=== PATIENT | male | born 1960 | race Caucasian/White ===

== ENCOUNTER 2021-12-06 15:11 | Outpatient (REF) | payer MEDICAID, SELFPAY ==
--- NOTE | 2021-12-06 14:00 | SKI_PTH ---
PATIENT: Emanuel Guido LOC: [facility] U#:[id number] AGE/SX: 61/M ROOM: RE12/06/[address]: Hector Hansen DO : 1960 BED: DIS: 12/06/2021 SPEC #: [id number] RECD: 12/06/21 18:11 STATUS: BLAS UNDEWROOD #: [id number] VITOR: 12/06/21 14:[address]: Hector Hansen DEPT: Surgical Specimen RECD BY: Kathleen Simeon Tissues: 1 - SKIN BIOPSY(SHAVE/PUNCH) Procedures: SKIN LEVEL 4 Comments: [id number]
== END 2021-12-06 15:12 | disposition home or self-care (01) ==
LOC: LBN 15:11
PROVIDERS: PCP Family Medicine; Referring Provider Family Medicine; Visit Provider Family Medicine
DX: R23.4 Changes in skin texture (principal)
CPT/HCPCS: 88305

== ENCOUNTER 2021-12-11 17:05 | Emergency (ER) | payer MEDICAID, SELFPAY ==
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
--- NOTE | 2021-12-11 18:45 | DI.RAD_ITS ---
Exam(s) XR PORTABLE CHEST AP EXAM: XR PORTABLE CHEST AP CLINICAL HISTORY: cough, hx of copd. TECHNIQUE: 2D digital imaging was performed. COMPARISON: No exams were available for comparison FINDINGS: Heart size is upper normal. The mediastinum is not widened. Lungs are clear. No infiltrates nor obvious pleural effusions. IMPRESSION: No acute pulmonary findings on this single AP portable view of the chest. DATA REPOSITORY: RADIATION DOSE DELIVERED: All CT scans at this facility use at least one of these dose optimization techniques: automated exposure control; mA and/or kV adjustment per patient size (includes targeted e xams where dose is matched to clinical indication); or iterative reconstruction.
[2021-12-11] MEDS: Dexamethasone 4 MG TAB 10 MG PO (19:52)
[2021-12-11] MEDS: diphenhydrAMINE 25 MG CAP PO (19:52)
[2021-12-11] MEDS: Albuterol/Ipratropium 3 ML UPD VIAL 9 ML UPD (19:52)
[2021-12-11 20:14] VITALS: BP 130/78; PULSE 72; RESP 16; TEMP 36.6; O2SAT 99
--- NOTE | 2021-12-11 21:00 | DI.VRAD_ITS ---
PROCEDURE INFORMATION: Exam: XR Chest Exam date and time: 12/11/2021 6:59 PM Age: 61 years old Clinical indication: Other: Cough, HX of copd TECHNIQUE: Imaging protocol: XR of the chest. Views: 1 view. COMPARISON: No relevant prior studies available. FINDINGS: Lungs: Unremarkable. No consolidation. Pleural spaces: Unremarkable. No pleural effusion. No pneumothorax. Heart/Mediastinum: Unremarkable. No cardiomegaly. Bones/joints: Unremarkable. IMPRESSION: No acute findings. Dictated and Authenticated by: Giovanni Dixon MD. Ordering:TANGELA Conrad MD
[2021-12-11 21:35] VITALS: BP 130/78; PULSE 72; RESP 16; TEMP 36.6; O2SAT 99
== END 2021-12-11 22:24 | disposition home or self-care (01) ==
PROVIDERS: Emergency Provider Emergency Medicine; PCP Family Medicine
DX: B86 Scabies (principal); R05.1 Acute cough; J44.9 Chronic obstructive pulmonary disease, unspecified
CPT/HCPCS: 94640; 99283; 71045; J7620; J8540

== ENCOUNTER → 2022-08-08 00:47 | Outpatient (CLI) | payer MEDICAID, SELFPAY ==
--- NOTE | 2022-08-08 07:00 | DI.RAD_ITS ---
Exam(s) XR KNEE RT 3V AP,LAT,JOEL EXAM: XR KNEE RT 3V AP,LAT,JOEL CLINICAL HISTORY: Chronic knee arthritis M17.10 OSTEOARTHRITIS KNEE. TECHNIQUE: 2D digital imaging was performed of the right knee. Three views obtained. AP, lateral an d PA tunnel views were obtained. COMPARISON: No exams were available for comparison FINDINGS: BONES: No acute fracture is present. No bony destructive lesion is seen. JOINTS: The knee is normally aligned. No joint effusion is seen. Mild degenerative changes are seen a t the patellofemoral joint. SOFT TISSUE: Atherosclerosis is present. IMPRESSION: Mild degenerative changes of the knee. DATA REPOSITORY: RADIATION DOSE DELIVERED:
== END ==
PROVIDERS: PCP Family Medicine; Visit Provider Family Medicine
DX: M17.11 Unilateral primary osteoarthritis, right knee (principal)
CPT/HCPCS: 73562

== ENCOUNTER 2022-10-27 17:03 | Emergency (ER) | payer MEDICAID, SELFPAY ==
[2022-10-27] VITALS (16 sets, daily range): BP systolic 102–123; BP diastolic 60–83; PULSE 65–72; RESP 12–22; TEMP 36.6–36.7; O2SAT 94–98
--- NOTE | 2022-10-27 17:15 | RT.EKG_ITS ---
APPROVED REPORT Exam: Resting ECG Reason for Exam: CHEST PAIN Patient Location: E HR:66 bpm ECG Measurements Heart Rate 66 AXIS OR 167 P 55 QRSd 79 QRS 31 QT 405 T 75 QTc 425 Conclusion Sinus rhythm...normal P axis, V-rate 60- 99 Low voltage, precordial leads...precordial leads <1.0mV
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
[2022-10-27 18:40] LABS: Abs Immature Grans 0.01 10^3/uL (0.0-0.06); Absolute Basophil Count 0.07 10^3/uL (0.0-0.2); Absolute Eosinophil Count 0.41 10^3/uL (0.0-0.7); Absolute Monocyte Count 0.77 10^3/uL (0.1-0.8); Absolute Neutrophil Count 2.25 10^3/uL (1.2-6.7); Basophils % 1.3; Eosinophils % 7.7; HCT 33.4 % (40.0-50.0); HGB 11.4 g/dL (13.5-17.5); Immature Grans % 0.2; Lymphocytes % 33.9; MCH 34.8 pg (27.0-33.0); MCHC 34.1 % (32.0-36.0); MCV 102 fL (80-95); MPV 10.4 fL (8.0-11.0); Monocytes % 14.5; Neutrophils % 42.4; Platelet Count 142 10^3/uL (130-400); RBC 3.28 10^6/uL (4.36-5.78); RDW 11.9 % (11.8-14.1); RDW-SD 44.9 fL; WBC 5.31 10^3/uL (4.4-10.8)
[2022-10-27 18:55] LABS: ALT 88 U/L (16-63); AST 129 U/L (15-37); Albumin 1.9 g/dL (3.4-5.0); Alkaline Phosphatase 179 U/L (46-116); Anion Gap 4.4 mmol/L (3-11); BUN 12 mg/dL (7-18); Bilirubin, Total 1.4 mg/dL (0.2-1.0); CO2 26.6 mmol/L (21.0-32.0); CREATININE 1.4 mg/dL (0.70-1.30); Calcium 7.7 mg/dL (8.5-10.1); Chloride 100 mmol/L (98-107); Estimated GFR 56.48 (mL/min/1.73m2); Glucose 99 mg/dL (74-106); Potassium 3.8 mmol/L (3.5-5.1); Sodium 131 mmol/L (136-145); Total Protein 7.5 g/dL (6.4-8.2)
[2022-10-27 19:02] LABS: Lipase 250 U/L (73-393)
[2022-10-27 19:11] LABS: INR 1.5 (0.9-1.1); PTT Activated 27.9 sec (21.0-27.5); Prothrombin Time 15.2 sec (9.3-11.0)
--- NOTE | 2022-10-27 21:35 | W.EDPROG ---
Date of service: 10/27/22 Time of Service: 20:00 Medical Decision Making 1999 -- 62yo M with a history of alcohol abuse, cirrhosis and ascites requiring recurrent paracentesis presented for abdominal pain and distention requesting paracentesis. Case endorsed to follow-up on body fluid results after Dr. Gonzalez performed bedside paracentesis and removed 3 L. 2129 --patient has requested to leave multiple times. Discussed that his body fluid results are not yet available. Patient states he feels much better and would like to go home. Discussed that suspicion for infection is low as he has been afebrile with normal white blood cell count and appears nontoxic but would recommend to wait for body fluid results to rule out infection. Patient understand the risks of and disability when leaving AGAINST MEDICAL ADVICE and he demonstrates capacity make decisions. He states he has a follow-up appointment with general surgery on Monday. He appears comfortable and nontoxic. His vitals are within normal limits. Advised to follow-up with his PCP and gastroenterology. 2229 --after patient left AMA, results available and note WBC 247uL, 12% polynuclear WBCs. Case and results reviewed with general surgery Dr. Blanco -- does not see any indications for antibiotics and patient can follow-up with general surgery as outpatient. Lab Data Lab results reviewed: Yes I reviewed the patient's lab results. Labs: 10/27/22 20:45 Paracentesis Body Fluid Culture - Pending 10/27/22 20:45 Paracentesis Gram Stain - Final 10/27/22 20:45 Abdomen Anaerobic Culture - Pending Laboratory Tests Range/Units 10/27/22 10/27/22 10/27/22 18:33 18:33 18:33 WBC (4.4-10.8) 10^3/uL 5.31 RBC (4.36-5.78) 10^6/uL 3.28 L Hgb (13.5-17.5) g/dL 11.4 L Hct (40.0-50.0) % 33.4 L MCV (80-95) fL 102 H MCH (27.0-33.0) pg 34.8 H MCHC (32.0-36.0) % 34.1 RDW (11.8-14.1) % 11.9 Plt Count (130-400) 10^3/uL 142 MPV (8.0-11.0) fL 10.4 Immature Gran % 0.2 Neutrophils % 42.4 Lymphocytes % 33.9 Monocytes % 14.5 Eosinophils % 7.7 Basophils % 1.3 Nucleated RBC % (0.0-0.3) % 0.0 Absolute Neutrophils (1.2-6.7) 10^3/uL 2.25 Absolute Lymphocytes (1.2-3.4) 10^3/uL 1.80 Absolute Monocytes (0.1-0.8) 10^3/uL 0.77 Absolute Eosinophils (0.0-0.7) 10^3/uL 0.41 Absolute Basophils (0.0-0.2) 10^3/uL 0.07 PT (9.3-11.0) sec INR (0.9-1.1) APTT (21.0-27.5) sec Sodium (136-145) mmol/L 131 L Potassium (3.5-5.1) mmol/L 3.8 Chloride (98-107) mmol/L 100 Carbon Dioxide (21.0-32.0) mmol/L 26.6 Anion Gap (3-11) mmol/L 4.4 BUN (7-18) mg/dL 12 Creatinine (0.70-1.30) mg/dL 1.4 H Est GFR (CKD-EPI 2020) (mL/min/1.73m2) 56.48 Glucose (74-106) mg/dL 99 Calcium (8.5-10.1) mg/dL 7.7 L Magnesium (1.8-2.4) mg/dL 2.0 Total Bilirubin (0.2-1.0) mg/dL 1.4 H AST (15-37) U/L 129 H ALT (16-63) U/L 88 H Alkaline Phosphatase (46-116) U/L 179 H Total Protein (6.4-8.2) g/dL 7.5 Albumin (3.4-5.0) g/dL 1.9 L Lipase (73-393) U/L 250 Fluid Source Fluid Color Fluid Clarity Fluid WBC (0) uL Fld Polynuclear WBCs % % Fluid Mononuclear Cell % Range/Units 10/27/22 10/27/22 18:33 20:45 WBC (4.4-10.8) 10^3/uL RBC (4.36-5.78) 10^6/uL Hgb (13.5-17.5) g/dL Hct (40.0-50.0) % MCV (80-95) fL MCH (27.0-33.0) pg MCHC (32.0-36.0) % RDW (11.8-14.1) % Plt Count (130-400) 10^3/uL MPV (8.0-11.0) fL Immature Gran % Neutrophils % Lymphocytes % Monocytes % Eosinophils % Basophils % Nucleated RBC % (0.0-0.3) % Absolute Neutrophils (1.2-6.7) 10^3/uL Absolute Lymphocytes (1.2-3.4) 10^3/uL Absolute Monocytes (0.1-0.8) 10^3/uL Absolute Eosinophils (0.0-0.7) 10^3/uL Absolute Basophils (0.0-0.2) 10^3/uL PT (9.3-11.0) sec 15.2 H INR (0.9-1.1) 1.5 H APTT (21.0-27.5) sec 27.9 H Sodium (136-145) mmol/L Potassium (3.5-5.1) mmol/L Chloride (98-107) mmol/L Carbon Dioxide (21.0-32.0) mmol/L Anion Gap (3-11) mmol/L BUN (7-18) mg/dL Creatinine (0.70-1.30) mg/dL Est GFR (CKD-EPI 2020) (mL/min/1.73m2) Glucose (74-106) mg/dL Calcium (8.5-10.1) mg/dL Magnesium (1.8-2.4) mg/dL Total Bilirubin (0.2-1.0) mg/dL AST (15-37) U/L ALT (16-63) U/L Alkaline Phosphatase (46-116) U/L Total Protein (6.4-8.2) g/dL Albumin (3.4-5.0) g/dL Lipase (73-393) U/L Fluid Source Peritoneal Fluid Color Yellow Fluid Clarity Clear Fluid WBC (0) uL 247 Fld Polynuclear WBCs % % 12 Fluid Mononuclear Cell % 88 Sign Out Sign Out Data: Sign Out Comment: Follow-up labs from paracentesis and reassess patient for disposition. Last updated by Wai Gonzalez MD at 10/27/22 20:40 Discharge Plan Disposition Patient Disposition: Against Medical Advice Condition: Stable Discharge Details Clinical Impression: Cirrhosis of liver with ascites, S/P abdominal paracentesis Primary Care Provider: Hector Hansen ED Provider: Liliana Burk Home Meds and New Rx's Prescriptions: Continued albuterol sulfate [Ventolin HFA] 90 mcg/actuation HFA aerosol inhaler 2 puff IH Q4H PRN (Reason: shortness of breath or wheezing) Qty: 18 12RF diphenhydramine HCl 25 mg capsule 25 mg PO QHS PRN (Reason: itching) Qty: 90 3RF montelukast 10 mg tablet 10 mg PO DAILY Qty: 30 12RF loratadine 10 mg tablet 10 mg PO DAILY Qty: 30 12RF fluticasone propionate 50 mcg/actuation spray,suspension 1 spray NS BID Qty: 18.2 6RF olanzapine 5 mg tablet 5 mg PO QHS Qty: 90 3RF clonazepam 1 mg tablet See Rx Instructions PO QHS PRN (Reason: insomnia) Qty: 90 2RF Rx Instructions: PO every day at bedtime, one when he gets up to urinate each time to total 3/d PRN; loperamide 2 mg capsule 2 mg PO Q6H PRN naloxone [Narcan] 4 mg/actuation spray,non-aerosol 4 mg NOEMY Q2M PRN (Reason: opioid overdose) Qty: 2 0RF Rx Instructions: spray 1 dose into ONE nostril; alternate nostrils w each dose until help arrives mirtazapine 15 mg tablet 15 mg PO QHS budesonide-formoterol 160-4.5 mcg/actuation HFA aerosol inhaler 2 puff inhalation BID nadolol 20 mg tablet 20 mg PO ONCE Qty: 60 3RF omeprazole 20 mg capsule,delayed release(DR/EC) 20 mg PO DAILY Qty: 30 12RF tamsulosin 0.4 mg capsule 0.4 mg PO DAILY Qty: 30 12RF melatonin 3 mg tablet 3 mg PO HS PRN furosemide 40 mg tablet 40 mg PO DAILY Qty: 60 0RF ondansetron 4 mg tablet,disintegrating 4 mg PO Q8H PRN (Reason: nausea and vomiting) Qty: 30 0RF oxycodone 10 mg tablet 10 mg PO TID MDD 30 mg PRN (Reason: pain) Qty: 84 0RF Discharge Instructions Additional Instructions: You are leaving the hospital AGAINST MEDICAL ADVICE as we do not have the test results from your paracentesis available yet today. You will be contacted if there are any concerning results as you may need to return to the hospital for further evaluation and consideration for admission or transfer to another hospital where a bed may be available. Please continue your medication as prescribed. Call your primary care doctor's office tomorrow to schedule a follow-up appointment for reevaluation in the next week. Please follow-up with general surgery as scheduled next week for potential need for repeat paracentesis. Please follow-up with gastroenterology . Call tomorrow. Return to the emergency apartment immediately for any worsening or new concerning symptoms such as fever, persistent vomiting, worsening pain or any other concerns. Referrals: [facility] [Provider Group] Hector Hansen DO [Primary Care Provider] - Discharge Data Discharge Physician: Liliana Burk
[2022-10-27 21:37] LABS: Clarity Clear; Nucleated Cells 247 uL (0); Source Peritoneal
[2022-10-27 21:50] LABS: Mononuclear Cells 88 %; Polynuclear Cells 12 %
[2022-10-30 14:52] LABS: Amylase, BF 16 U/L; Fluid Type PERITONEAL
== END 2022-10-27 21:43 | disposition left against medical advice (07) ==
PROVIDERS: Student in an Organized Health Care Education/Training Program; Emergency Provider Physician Assistant; PCP Family Medicine
DX: K74.60 Unspecified cirrhosis of liver (principal); R18.8 Other ascites
CPT/HCPCS: 36415; 49082; 80053; 83690; 93005; 99283; 82150; 83735; 85025; 85610; 85730; 87070; 87075; 87205; 89051; 93010; 99284

== ENCOUNTER 2022-11-22 10:50 | Day surgery (SDC) | payer MEDICAID, SELFPAY ==
--- NOTE | 2022-11-21 20:31 | W.PM.DSUDISC ---
Date of service: 11/22/22 Time of Service: 12:25 Discharge Plan Disposition Patient Disposition: Home Condition: Good Discharge Details Reason For Visit: Paracentesis Attending Provider: Rubio Blanco Primary Care Provider: Hector Hansen Home Meds and New Rx's Prescriptions: Continued albuterol sulfate [Ventolin HFA] 90 mcg/actuation HFA aerosol inhaler 2 puff IH Q4H PRN (Reason: shortness of breath or wheezing) Qty: 18 12RF diphenhydramine HCl 25 mg capsule 25 mg PO QHS PRN (Reason: itching) Qty: 90 3RF montelukast 10 mg tablet 10 mg PO DAILY Qty: 30 12RF fluticasone propionate 50 mcg/actuation spray,suspension 1 spray NS BID Qty: 18.2 6RF olanzapine 5 mg tablet 5 mg PO QHS Qty: 90 3RF clonazepam 1 mg tablet See Rx Instructions PO QHS PRN (Reason: insomnia) Qty: 90 2RF Rx Instructions: PO every day at bedtime, one when he gets up to urinate each time to total 3/d PRN; naloxone [Narcan] 4 mg/actuation spray,non-aerosol 4 mg NOEMY Q2M PRN (Reason: opioid overdose) Qty: 2 0RF Label Comments: pt states he has never used this Rx Instructions: spray 1 dose into ONE nostril; alternate nostrils w each dose until help arrives mirtazapine 15 mg tablet 15 mg PO QHS budesonide-formoterol 160-4.5 mcg/actuation HFA aerosol inhaler 2 puff inhalation BID nadolol 20 mg tablet 20 mg PO ONCE Qty: 60 3RF tamsulosin 0.4 mg capsule 0.4 mg PO DAILY Qty: 30 12RF melatonin 3 mg tablet 3 mg PO HS PRN ondansetron 4 mg tablet,disintegrating 4 mg PO Q8H PRN (Reason: nausea and vomiting) Qty: 30 0RF oxycodone 10 mg tablet 10 mg PO TID MDD 30 mg PRN (Reason: pain) Qty: 84 0RF loperamide 2 mg capsule 2 mg PO Q6H PRN (Reason: loose stool) Qty: 90 1RF loratadine 10 mg tablet 10 mg PO DAILY Qty: 30 12RF omeprazole 20 mg capsule,delayed release(DR/EC) 20 mg PO DAILY Qty: 30 12RF furosemide 40 mg tablet 60 mg PO DAILY Qty: 135 0RF Discharge Instructions Instructions: Paracentesis (GEN) Additional Instructions: Emanuel, we were able to drain 3600 mL of ascites off of your abdomen today. Hopefully, this will provide you some relief. Please contact the office to schedule another paracentesis in about 3 weeks time. Activity:: Activity as Tolerated Remove Dressings/Wound Care:: 24 hours Shower/Bathe:: 24 hours Diet:: As Tolerated Discharge Orders Discharge Orders: Discharge Order (Routine); Ordered 11/21/22 Ordered By: Rubio Blanco DS: Diagnosis Discharge Diagnosis (1) Cirrhosis of liver with ascites: Status: Acute Asessment and Plan: Follow-up for next paracentesis 3 weeks
--- NOTE | 2022-11-21 20:33 | ROE_ITS ---
Date of service: 11/22/22 Time of Service: 12:27 Operative Note Operative Note DATE OF PROCEDURE: 11/22/22 PRE-OP DIAGNOSIS: Ascites POST-OP DIAGNOSIS: same PROCEDURE: Paracentesis SURGEON: Rubio Blanco ANESTHESIA TYPE: Local By Surgeon ESTIMATED BLOOD LOSS: 5 PATHOLOGY: none sent COMPLICATIONS: None Patient was transported to: same day Patient's condition: stable Indications: Emanuel is a 62-year-old male with alcoholic cirrhosis and tense ascites Procedure Description: I started by performing a limited ultrasound of the abdomen to identify appropriate site for paracentesis. Next, I selected the left lower quadrant as the ideal site for paracentesis. I then prepped and draped the abdomen. Next, using ultrasound guidance, I anesthetized the skin with 1% lidocaine with epinephrine. I used the ultrasound to guide the needle down to the peritoneal level which was also anesthetized. I then made a small incision in the skin with a 11 blade scalpel. Next, I advanced the 5 [place] paracentesis needle and catheter through the incision and into the peritoneal cavity under the direct vision of the ultrasound. I aspirated straw-colored ascites. Next, I gently advance the catheter and remove the needle. I affixed drainage tubing, and began draining the ascites with the assistance of Vacutainer's. I drained 3600 mL of ascites. Once the ascites stopped flowing, I removed the catheter and used a Band-Aid to dress the wound.
[2022-11-22 11:38] VITALS: BP 91/77; PULSE 74; RESP 20; TEMP 36.5; O2SAT 99
[2022-11-22 12:33] VITALS: BP 91/66; PULSE 83; RESP 16; TEMP 36.3; O2SAT 100
== END 2022-11-22 13:03 | disposition home or self-care (01) ==
PROVIDERS: PCP Family Medicine; Visit Provider Surgery
PROC: 0W9G3ZZ Drainage of Peritoneal Cavity, Percutaneous Approach (ICD-10-PCS; CPT 49082; principal; 2022-11-22 11:30)
DX: K70.31 Alcoholic cirrhosis of liver with ascites (principal)
CPT/HCPCS: 49082

== ENCOUNTER 2022-12-09 11:02 | Day surgery (SDC) | payer MEDICAID, SELFPAY ==
--- NOTE | 2022-12-08 21:13 | W.PM.DSUDISC ---
Date of service: 12/09/22 Time of Service: 13:35 Discharge Plan Disposition Patient Disposition: Home Condition: Good Discharge Details Reason For Visit: paracentesis Attending Provider: Rubio Blanco Primary Care Provider: Hector Hansen Home Meds and New Rx's Prescriptions: Continued fluticasone propionate 50 mcg/actuation spray,suspension 1 spray NS BID Qty: 18.2 6RF olanzapine 5 mg tablet 5 mg PO QHS Qty: 90 3RF naloxone [Narcan] 4 mg/actuation spray,non-aerosol 4 mg NOEMY Q2M PRN (Reason: opioid overdose) Qty: 2 0RF Patient Comments: pt states he has never used this Rx Instructions: spray 1 dose into ONE nostril; alternate nostrils w each dose until help arrives mirtazapine 15 mg tablet 15 mg PO QHS budesonide-formoterol 160-4.5 mcg/actuation HFA aerosol inhaler 2 puff inhalation BID nadolol 20 mg tablet 20 mg PO ONCE Qty: 60 3RF oxycodone 10 mg tablet 10 mg PO TID MDD 30 mg PRN (Reason: pain) Qty: 84 0RF clonazepam 1 mg tablet See Rx Instructions PO QHS PRN (Reason: insomnia) Qty: 90 3RF Rx Instructions: PO every day at bedtime, one when he gets up to urinate each time to total 3/d PRN; buspirone 5 mg tablet 15 mg PO BID Qty: 180 3RF CeraVe Daily Moisturizing Lotion 1 applic topical DAILY Qty: 355 6RF tamsulosin 0.4 mg capsule 0.4 mg PO DAILY Qty: 30 12RF melatonin 3 mg tablet 3 mg PO HS PRN loperamide 2 mg capsule 2 mg PO Q6H PRN (Reason: loose stool) Qty: 90 1RF loratadine 10 mg tablet 10 mg PO DAILY Qty: 30 12RF omeprazole 20 mg capsule,delayed release(DR/EC) 20 mg PO DAILY Qty: 30 12RF furosemide 40 mg tablet 60 mg PO DAILY Qty: 135 0RF diphenhydramine HCl 25 mg capsule 25 mg PO BID PRN (Reason: itching) Qty: 180 3RF albuterol sulfate [Ventolin HFA] 90 mcg/actuation HFA aerosol inhaler 2 puff IH Q4H PRN (Reason: shortness of breath or wheezing) Qty: 18 12RF ondansetron 4 mg tablet,disintegrating 4 mg PO Q8H PRN (Reason: nausea and vomiting) Qty: 60 6RF montelukast 10 mg tablet 10 mg PO DAILY Qty: 30 12RF Discharge Instructions Instructions: Ascites (GEN), Paracentesis (GEN) Activity:: Activity as Tolerated Remove Dressings/Wound Care:: 24 hours Shower/Bathe:: 24 hours Discharge Orders Discharge Orders: Discharge Order (Routine); Ordered 12/08/22 Ordered By: Rubio Blanco DS: Diagnosis Discharge Diagnosis (1) Abdominal ascites: Status: Acute
--- NOTE | 2022-12-08 21:15 | W.PM.OP ---
Date of service: 12/09/22 Time of Service: 13:36 Operative Note Operative Note DATE OF PROCEDURE: 12/09/22 PRE-OP DIAGNOSIS: Ascites POST-OP DIAGNOSIS: same PROCEDURE: paracentesis SURGEON: Rubio Blanco ANESTHESIA TYPE: Local By Surgeon ESTIMATED BLOOD LOSS: 5 COMPLICATIONS: None Patient was transported to: same day Patient's condition: stable Indications: Emanuel is a 62-year-old male with cirrhosis and tense ascites Findings: 5200 ml ascites Procedure Description: I started by performing a limited ultrasound of the abdomen to identify appropriate site for paracentesis. Next, I selected the left lower quadrant as the ideal site for paracentesis. I then prepped and draped the abdomen. Next, using ultrasound guidance, I anesthetized the skin with 1% lidocaine with epinephrine. I used the ultrasound to guide the needle down to the peritoneal level which was also anesthetized. I then made a small incision in the skin with a 11 blade scalpel. Next, I advanced the 5 [place] paracentesis needle and catheter through the incision and into the peritoneal cavity under the direct vision of the ultrasound. I aspirated straw-colored ascites. Next, I gently advance the catheter and remove the needle. I affixed drainage tubing, and began draining the ascites with the assistance of Vacutainer's. I drained 5 L of ascites. As the flow decreased, I assisted the patient to the left lateral decubitus position to improve drainage. I was able to drain approximately 200 mL after this. Once the ascites stopped flowing, I removed the catheter and used a Band-Aid to dress the wound.
[2022-12-09 12:05] VITALS: BP 97/74; PULSE 104; RESP 24; TEMP 36.3; O2SAT 98
[2022-12-09 13:34] VITALS: BP 86/71; PULSE 81; RESP 18; TEMP 35.7; O2SAT 99
[2022-12-09] MEDS: diphenhydrAMINE 25 MG CAP 50 MG PO (13:50)
== END 2022-12-09 11:03 | disposition home or self-care (01) ==
PROVIDERS: PCP Family Medicine; Visit Provider Surgery
PROC: 0W9G3ZZ Drainage of Peritoneal Cavity, Percutaneous Approach (ICD-10-PCS; CPT 49082; principal; 2022-12-09 13:00)
DX: R18.8 Other ascites (principal)
CPT/HCPCS: 49082